=== PATIENT | male | born 2000 | race Hispanic/Latino ===

== ENCOUNTER 2024-12-29 19:12 | Emergency (ER) | payer SELFPAY ==
[~2024-12-29] VITALS: Ht 190.5 cm; Wt 87.1 kg
[2024-12-29] MEDS ORDERED: ketOROlac 15MG/ML VIAL (15MG/ML) IV ONE (20:00)
[2024-12-29] MEDS ORDERED: CLINDAMYCIN IVPB 300MG/50ML 50 ML IV SCH (20:00)
[2024-12-29] MEDS ORDERED: dexaMETHasone SOD PHOSPHATE 4 MG/ML 1ML VIAL IV ONE (20:00)
[2024-12-29] MEDS: CLINDAMYCIN IVPB 300MG/50ML 50 ML IV ONE (21:23)
[2024-12-29] MEDS: dexaMETHasone SOD PHOSPHATE 4 MG/ML 1ML VIAL IV ONE (21:24)
[2024-12-29] MEDS: ketOROlac 15MG/ML VIAL (15MG/ML) IV ONE ×2 (21:24→22:33)
[2024-12-29] MEDS ORDERED: CLIN-141 PO (22:26)
[2024-12-29] MEDS ORDERED: KETO10TA2 PO (22:26)
--- NOTE | 2024-12-29 22:31 | ERN ---
General Chief Complaint: Abscess Stated Complaint: ABSESS UNDER LEFT ARMPIT Time Seen by MD: 19:14 Time Seen by Midlevel: 19:14 Source: patient History of Present Illness Initial Comments The patient is a 24-year-old male presenting to the emergency department with a left axillary abscess. The abscess has been progressively worsening over the last three days. Denies any fever, chills, or any other symptoms at this time. According to the patient he was had similar episodes in the past that needed drainage. Allergies: Coded Allergies: No Known Drug Allergies (Unverified Allergy, Unknown, 12/29/24) Past Medical History Past Medical History: No Pertinent History Past Surgical History: None ROS Dictation CONSTITUTIONAL: Negative except for HPI HEAD/FACE: Negative except for HPI EENT: Negative except for HPI RESPIRATORY: Negative except for HPI GASTROINTESTINAL/ABDOMINAL: Negative except for HPI GENITOURINARY: Negative except for HPI MUSCULOSKELETAL: Negative except for HPI INTEGUMENTARY: Negative except for HPI NEUROLOGICAL/PSYCH: Negative except for HPI HEMATOLOGIC/LYMPHATIC: Negative except for HPI All Systems Negative, Except as noted above. 13 point review of systems assessed and all negative except for above. Physical Exam Physical Exam Dictation Vital Signs reviewed General Appearance: Alert, oriented x 3, no acute distress, well developed, nourished. Head and Face: non-traumatic. Eyes: PERRL, pink conjunctivas, eyelid no trauma, anterior chamber with arcus senilis. Ears: Pinnas intact and no signs of trauma or erythema ear canals clear and no discharge TM no erythema Nose: No discharge, no bleeding. Oropharynx: Mouth normal, tongue pink, pharynx clear,no erythema, tonsils no exudates, no abscesses noted, mucous membrane moist Neck: Supple, non-tender, no thyromegaly, no masses, no JVD, no bruits Breast:Deferred Chest:No tenderness, no crepitus, no paradoxical movement, no retractions Lungs:Clear, well-ventilated, symmetric, no rales, no wheezing, no rhonchi, no stridor, good breath sounds bilaterally Heart: Regular rate, regular rhythm, no murmur, no gallops Vascular: no peripheral edema, Abdomen: Soft, positive bowel sounds, nondistended, no guarding, nontender, no rebound, no masses no hepatomegaly, no splenomegaly, no Marquis's sign, no hernias. Rectal: Deferred Genital: Deferred Neurological: Normal speech, motor function intact, sensory function intact Musculoskeletal: Neck nontender, full range of motion, back nontender, full range of motion, Extremities: nontender, full range of motion Skin: 3 x 3 cm abscess to the left axillary region with surrounding erythema Lymphatic: Deferred MDM MDM: Differential diagnosis: Abscess, cellulitis, axillary lymphadenopathy There are no social concerns with this patient. Prescription drug management Prescriptions will include: Clindamycin, ketorolac Medical management and examination interpretation discussions were had by me with other qualified healthcare professionals as indicated for the patient's care. ED Course Orders Procedure Category Date Status Time Clindamycin Ivpb PHA 12/29/24 Complete 300mg/50ml (Cleocin 20:00 Dexamethasone 4mg/Ml PHA 12/29/24 Complete 1ml Vial (Dexametha 20:00 Ketorolac PHA 12/29/24 Complete Tromethamine 15mg/Ml 20:00 Ketorolac PHA 12/29/24 Complete Tromethamine 15mg/Ml 21:00 Dexamethasone 4mg/Ml PHA 12/29/24 Complete 1ml Vial (Dexametha 21:00 Clindamycin Ivpb PHA 12/29/24 Complete 300mg/50ml (Cleocin 21:00 Current Medications Medications (Trade) Dose Ordered Sig/Jonathan Route PRN Reason Start Time Stop Time Status Last Admin Dose Admin Clindamycin HCl/ Dextrose 50 ml @ 100 mls/hr ONCE ONCE IV 12/29/24 21:00 12/29/24 21:29 DC 12/29/24 21:23 Clindamycin HCl/ Dextrose 50 ml @ 100 mls/hr Q8H IV 12/29/24 20:00 12/29/24 20:58 DC Dexamethasone Sodium Phosphate (dexaMETHasone 4MG/ML 1ML VIAL) 4 mg ONCE ONCE IV 12/29/24 20:00 12/29/24 20:59 DC Dexamethasone Sodium Phosphate (dexaMETHasone 4MG/ML 1ML VIAL) 4 mg ONCE ONCE IV 12/29/24 21:00 12/29/24 21:01 DC 12/29/24 21:24 Ketorolac Tromethamine (toRADol) 15 mg ONCE ONCE IV 12/29/24 20:00 12/29/24 20:59 DC Ketorolac Tromethamine (toRADol) 15 mg ONCE ONCE IV 12/29/24 21:00 12/29/24 21:01 DC 12/29/24 21:24 Vital Signs Date Time Temp Pulse Resp B/P (MAP) Pulse Ox O2 Delivery O2 Flow Rate FiO2 12/29/24 19:39 98.4 93 20 127/90 99 Room Air Procedure Dictation Performed by: Ulises Metz PA-C Authorized by: Patient Consent: Verbal consent obtained. Risks and benefits: Risks, benefits, and alternatives were discussed Consent given by: Patient Patient understanding: patient states understanding of the procedure being performed Patient consent: the patient's understanding of the procedure matches consent given Patient identity confirmed: arm band Time out: Immediately prior to procedure a "time out" was called to verify the correct patient, procedure, equipment, technician support engineer and site/side marked as required. Type: abscess Location details: left axillary region Anesthesia: local infiltration Local anesthetic: lidocaine 1% with epinephrine Anesthetic total: 15 ml Patient sedated: no Scalpel size: 11 Incision type: single straight Complexity: simple Drainage: purulent Drainage amount: moderate Wound treatment: packed Packing material: iodaform Patient tolerance: Patient tolerated the procedure well with no immediate complications. DX & DISP Disposition: Discharge Departure Impression: Primary Impression: Abscess of left axilla Condition: Stable Scripts Ketorolac Tromethamine (Ketorolac Tromethamine) 10 Mg Tablet 1 TAB PO TID for pain for 5 Days, #15 TAB 0 Refills Prov: ULISES METZ 12/29/24 Clindamycin HCl (Clindamycin HCl) 300 Mg Capsule 1 CAP PO QID for 7 Days, #28 CAP 0 Refills Prov: ULISES METZ 12/29/24 Referrals: SELF,REFERRAL (PCP) Time of Disposition: 22:25 I have reviewed the case, and I agree with, Diagnosis and Plan I performed the substantive portion of the visit. I have reviewed and personal ly made and approve the management plan that is documented in the note by myself or the TON. I acknowledge for responsibility for the patient's management plan. ULISES METZ Dec 29, 2024 22:31
[2024-12-29 22:37] VITALS: BP 133/79; PULSE 86; RESP 18; TEMP 97.8; O2SAT 98
== END 2024-12-29 22:48 | disposition home or self-care (01) ==
LOC: EDH 19:12
DX: L02.412 Cutaneous abscess of left axilla (principal)
CPT/HCPCS: 99284; 96365; 10060; 96375; 96376; J1100; J1885 ×2; J3490

== ENCOUNTER 2025-02-19 16:38 | Emergency (ER) | payer OTHER ==
[~2025-02-19] VITALS: Ht 190.5 cm; Wt 88.5 kg
[~2025-02-19 16:38] MED LIST: CLIN-141 PO; KETO10TA2 PO
[2025-02-19] MEDS: ketOROlac 30MG VIAL (30MG/ML) IM ONE (17:48)
--- NOTE | 2025-02-19 18:27 | HMCIMG ---
Exam Type: THORACIC SPINE SERIES History: fall Comparison: none Findings: The thoracic spine is well visualized. All pedicles and spinous processes are intact. No fracture or bony lesions are identified. The vertebral bodies are well aligned, and the disc spaces are normal. The visualized soft tissues are unremarkable. IMPRESSION: NORMAL THORACIC SPINE.
[2025-02-19 18:33] VITALS: BP 125/78; PULSE 62; RESP 20; TEMP 97.9; O2SAT 99
--- NOTE | 2025-02-19 19:02 | ERN ---
General Chief Complaint: Back Pain or Injury Stated Complaint: BACK PAIN Time Seen by MD: 16:43 Time Seen by Midlevel: 16:43 Source: patient History of Present Illness Initial Comments 24-year-old male presents to the emergency department with upper back pain after a work injury. 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 The skilled nursing patient accidentally lost all his strength so patient had two hold the individual up. Shortly after he developed upper back pain. Denies any other symptoms Allergies: Coded Allergies: No Known Drug Allergies (Unverified Allergy, Unknown, 12/29/24) Home Meds Active Scripts Ketorolac Tromethamine (Ketorolac Tromethamine) 10 Mg Tablet, 1 TAB PO TID for pain for 5 Days, #15 TAB 0 Refills Prov:ULISES BROWN 02/19/25 Ketorolac Tromethamine (Ketorolac Tromethamine) 10 Mg Tablet, 1 TAB PO TID for pain for 5 Days, #15 TAB 0 Refills Prov:ULISES BROWN 12/29/24 Clindamycin HCl (Clindamycin HCl) 300 Mg Capsule, 1 CAP PO QID for 7 Days, #28 CAP 0 Refills Prov:ULISES BROWN 12/29/24 Past Medical History Past Medical History: No Pertinent History Past Surgical History: None ROS Dictation CONSTITUTIONAL: Negative except for HPI HEAD/FACE: Negative except for HPI EENT: Negative except for HPI RESPIRATORY: Negative except for HPI GASTROINTESTINAL/ABDOMINAL: Negative except for HPI GENITOURINARY: Negative except for HPI MUSCULOSKELETAL: Negative except for HPI INTEGUMENTARY: Negative except for HPI NEUROLOGICAL/PSYCH: Negative except for HPI HEMATOLOGIC/LYMPHATIC: Negative except for HPI All Systems Negative, Except as noted above. 13 point review of systems assessed and all negative except for above. Physical Exam Physical Exam Dictation Vital Signs reviewed General Appearance: Alert, oriented x 3, no acute distress, well developed, nourished. Head and Face: non-traumatic. Eyes: PERRL, pink conjunctivas, eyelid no trauma, anterior chamber with arcus senilis. Ears: Pinnas intact and no signs of trauma or erythema ear canals clear and no discharge TM no erythema Nose: No discharge, no bleeding. Oropharynx: Mouth normal, tongue pink, pharynx clear,no erythema, tonsils no exudates, no abscesses noted, mucous membrane moist Neck: Supple, non-tender, no thyromegaly, no masses, no JVD, no bruits Breast:Deferred Chest:No tenderness, no crepitus, no paradoxical movement, no retractions Lungs:Clear, well-ventilated, symmetric, no rales, no wheezing, no rhonchi, no stridor, good breath sounds bilaterally Heart: Regular rate, regular rhythm, no murmur, no gallops Vascular: no peripheral edema, Abdomen: Soft, positive bowel sounds, nondistended, no guarding, nontender, no rebound, no masses no hepatomegaly, no splenomegaly, no Marquis's sign, no hernias. Rectal: Deferred Genital: Deferred Neurological: Normal speech, motor function intact, sensory function intact Musculoskeletal: Neck nontender, full range of motion, back nontender, full range of motion, Extremities: nontender, full range of motion Skin: Color pink, dry, no turgor, no rash, no lacerations, no abrasions, no contusions. Lymphatic: Deferred MDM MDM: Differential diagnosis: Upper back strain, fracture, dislocation There are no social concerns with this patient. Prescription drug management Prescriptions will include: Toradol Medical management and examination interpretation discussions were had by me with other qualified healthcare professionals as indicated for the patient's care. ED Course Orders Procedure Category Date Status Time Thoracic Spine 3vws RAD 02/19/25 Resulted 17:32 Ketorolac PHA 02/19/25 Complete Tromethamine 30mg/Ml 18:00 Current Medications Medications (Trade) Dose Ordered Sig/Jonathan Route PRN Reason Start Time Stop Time Status Last Admin Dose Admin Ketorolac Tromethamine (toRADol) 30 mg ONCE ONCE IM 02/19/25 18:00 02/19/25 18:01 DC 02/19/25 17:48 Vital Signs Date Time Temp Pulse Resp B/P (MAP) Pulse Ox O2 Delivery O2 Flow Rate FiO2 02/19/25 18:33 97.9 62 20 125/78 99 Room Air* 0 21 02/19/25 16:47 97.9 69 20 122/71 99 Room Air* 0 02/19/25 16:39 97.9 69 20 123/71 99 DX & DISP Disposition: Discharge Departure Impression: Primary Impression: Upper back strain Condition: Stable Scripts Ketorolac Tromethamine (Ketorolac Tromethamine) 10 Mg Tablet 1 TAB PO TID for pain for 5 Days, #15 TAB 0 Refills Prov: ULISES BROWN 02/19/25 Referrals: SELF,REFERRAL (PCP) Time of Disposition: 18:30 I have reviewed the case, and I agree with, Diagnosis and Plan I performed the substantive portion of the visit. I have reviewed and personally made and approve the management plan that is documented in the note by myself or the TON. I acknowledge for responsibility for the patient's manage ment plan. ULISES BROWN Feb 19, 2025 19:02
== END 2025-02-19 18:34 | disposition home or self-care (01) ==
LOC: EDH 16:38
DX: S29.012A Strain of muscle and tendon of back wall of thorax, initial encounter (principal); W18.39XA Other fall on same level, initial encounter; Y93.89 Activity, other specified; Y92.89 Other specified places as the place of occurrence of the external cause; Y99.8 Other external cause status
CPT/HCPCS: 99283; 72072; 96372; J1885